=== PATIENT | female | born 1995 | race African-American/Black ===

== ENCOUNTER 2020-02-14 17:05 | Emergency (ER) | payer MEDICAID ==
[~2020-02-14] VITALS: Ht 157.5 cm; Wt 72.0 kg
[2020-02-14 17:46] VITALS: BP 131/64
[2020-02-14] MEDS ORDERED: SULF1TAB24 PO (18:29)
--- NOTE | 2020-02-14 18:31 | PHYS DOC ---
Past Medical History Past Medical History: Schizophrenia Past Surgical History: Cholecystectomy Smoking Status: Current Some Day Smoker Alcohol Use: None General Adult EDM: Chief Complaint: SKIN RASH/ABSCESS HPI: HPI: Patient is a 24 year old female who presents with a right under the breast medially quarter sized draining abscess for the last 2 days. It is draining yellow purulent fluid. It is hard. There is no cellulitis associated. Patient denies fever, abdominal pain, nausea, vomiting, dizziness, headache, body aches, chest pain, shortness of air. She states she does have a physician she can follow-up with in the next 48 hours to check her wound. She rates her pain as a burning aching 7 out of 10. Review of Systems: Review of Systems: Constitutional: Denies fever or chills. [] Eyes: Denies change in visual acuity. [] HENT: Denies nasal congestion or sore throat. [] Respiratory: Denies cough or shortness of breath. [] Cardiovascular: Denies chest pain or edema. [] GI: Denies abdominal pain, nausea, vomiting, bloody stools or diarrhea. [] : Denies dysuria. [] Musculoskeletal: Denies back pain or joint pain. Right breast pain [] Integument: Denies rash. Right breast abscess. [] Neurologic: Denies headache, focal weakness or sensory changes. [] Endocrine: Denies polyuria or polydipsia. [] Lymphatic: Denies swollen glands. [] Psychiatric: Denies depression or anxiety. [] Heart Score: Risk Factors: Risk Factors: DM, Current or recent (<one month) smoker, HTN, HLP, family history of CAD, obesity. Risk Scores: Score 0 - 3: 2.5% MACE over next 6 weeks - Discharge Home Score 4 - 6: 20.3% MACE over next 6 weeks - Admit for Clinical Observation Score 7 - 10: 72.7% MACE over next 6 weeks - Early Invasive Strategies Allergies: Allergies: Allergies Coded Allergies Type Severity Reaction Last Updated Verified haloperidol Allergy Severe FACE SWELLING 02/14/20 Yes Physical Exam: PE: Constitutional: Well developed, well nourished, no acute distress, non-toxic appearance. [] HENT: Normocephalic, atraumatic, bilateral external ears normal, oropharynx moist, no oral exudates, nose normal. [] Eyes: PERRLA, EOMI, conjunctiva normal, no discharge. [] Neck: Normal range of motion, no tenderness, supple, no stridor. [] Cardiovascular:Heart rate regular rhythm, no murmur [] Lungs & Thorax: Bilateral breath sounds clear to auscultation [] Abdomen: Bowel sounds normal, soft, no tenderness, no masses, no pulsatile masses. [] Skin: Warm, dry, no erythema, no rash. Right under breast medially quarter sized abscess that is draining [] Back: No tenderness, no CVA tenderness. [] Extremities: No tenderness, no cyanosis, no clubbing, ROM intact, no edema. [] Neurologic: Alert and oriented X 3, normal motor function, normal sensory function, no focal deficits noted. [] Psychologic: Affect normal, judgement normal, mood normal. [] Current Patient Data: Vital Signs: Vital Signs Date Time Temp Pulse Resp B/P (MAP) Pulse Ox O2 Delivery O2 Flow Rate FiO2 02/14/20 17:46 98.6 78 18 131/64 (86) 94 Room Air 98.6 EKG: EKG: [] Radiology/Procedures: Radiology/Procedures: [] Course & Med Decision Making: Course & Med Decision Making Pertinent Labs and Imaging studies reviewed. (See chart for details) See HPI. Alert and oriented x4. Ambulatory with a steady gait. Vital signs within normal limits. Patient is given Bactrim antibiotic. She is told that she needs to follow-up with a primary care return for urine recheck in 48 hours. [] Dragon Disclaimer: Dragon Disclaimer: This electronic medical record was generated, in whole or in part, using a voice recognition dictation system. Departure Departure Impression: Primary Impression: Abscess Disposition: 01 HOME, SELF-CARE Condition: STABLE Referrals: NO PCP (PCP) Patient Instructions: Abscess Additional Instructions: FOLLOW UP WITH PRIMARY CARE PROVIDER IN THE NEXT 48 HOUR OR RETURN. TAKE MEDICATION PRESCRIBED AND WITH FOOD. USE A WARM COMPRESS. Scripts Sulfamethoxazole/Trimethoprim (BACTRIM DS TABLET) 1 Each Tablet 1 TAB PO BID for 10 Days, #20 TAB 0 Refills Prov: BRYN BAUTISTA APRN 02/14/20 Justicifation of Admission Dx: Justifications for Admission: Justification of Admission Dx: N/A BRYN BAUTISTA APRN Feb 14, 2020 18:31
== END 2020-02-14 18:46 | disposition home or self-care (01) ==
LOC: ER 17:05
DX: N61.1 Abscess of the breast and nipple (principal); F20.9 Schizophrenia, unspecified; Z90.49 Acquired absence of other specified parts of digestive tract; Z98.890 Other specified postprocedural states; Z88.8 Allergy status to other drugs, medicaments and biological substances
CPT/HCPCS: 99283